=== PATIENT | female | born 1965 | race Caucasian/White ===

== ENCOUNTER → 2016-02-17 | Outpatient (CLI) | payer OTHER ==
[2015-11-14 15:00] VITALS: BP 137/84
[~2016-02-17] MED LIST: ALPR0.5T6 PO; ASPI81TA2 PO; ATOR40TA59 PO; CARV6.252 PO; CYCL10TA2 PO; FLU60SYR IM; FLUO20CA8 PO; GADOBUTROL 10 MMOL/10 ML VIAL IV ONE; HYDR-963 PO; LEVO88TA4 PO; LINA145C PO; LISI2.5T PO; METH-38 PO; MORP30TA83 PO; NITR0.4T SL; OMEP20TA PO; OXYC-323 PO; PROAIR HFA8.5 GM INH; SENN-37 PO
--- NOTE | 2016-02-17 12:48 | RAD ---
PROCEDURE MRI lumbar spine without and with contrast. HISTORY Worsening low back pain, surgery TECHNIQUE Sagittal and axial T1 and T2, sagittal STIR, and post-contrast sagittal and axial T1 weighted images were acquired of the lumbar spine. Contrast: 10 cc Gadavist COMPARISON None available FINDINGS There is motion degradation. The most inferior fully formed intervertebral disc space will be considered L5-S1 for this report. There is superior Schmorl's node of what is considered L2, smaller foci of T12 and L1 and also visualized inferior thoracic levels. There is nonspecific mild edema and enhancement associated with the superior L2 Schmorl's node. Conus terminates at L1. There is no nodular enhancement of the conus or cauda equina, no enhancement within the central intervertebral disc spaces. There is nonspecific edema and enhancement of the posterior soft tissues of the lower back. L1-L2: Spinal canal and neural foramina are adequate. L2-3: There is mild facet hypertrophic change. There is prominence of posterior epidural fat. Neural foramina and spinal canal are adequate. L3-4: There is prominence of posterior epidural fat. There is mild buckling of the ligamentum flavum and facet hypertrophic change. Neural foramina are adequate. There is overall mild attenuation of the thecal sac mostly from posterior epidural lipomatosis. L4-5: There has been posterior decompression. There is enhancing soft tissue at the laminectomy site, also nonspecific peripherally enhancing fluid collection on the order of 1 centimeter AP by 0.9 cm transverse by 1.7 centimeters cc. Fluid collection does not exert significant additional mass effect on the thecal sac. There is no clear communication between the thecal sac and the fluid collection. There is mild indentation upon the dorsal thecal sac by enhancing soft tissue at the level of the mid aspect of L5. At the L4-5 intervertebral disc space, spinal canal is overall adequate. There is posterior annular tear. Neural foramina are overall adequate. There is minimal posterior narrowing of the far left lateral recess by facet hypertrophic change. L5-S1: Spinal canal and neural foramina are adequate. There has been posterior decompression at L5. IMPRESSION 1. The most inferior fully formed intervertebral disc space is considered L5-S1 for this report. There has been posterior decompression at L4-5, enhancing fibrosis at laminectomy site with associated nonspecific fluid collection of uncertain sterility. Fluid collection does not result in mass effect upon the thecal sac. There is other nonspecific edema and enhancement of the posterior soft tissues of the lower back. There is no significant lumbar spinal stenosis. 2. There is a nonspecific superior L2 Schmorl's node with associated edema and enhancement, could be more recent. Electronically signed by: Brendon Smith MD (Feb 17, 2016 12:47:37)
== END | disposition home or self-care (01) ==
LOC: MRI 09:04
PROVIDERS: ATTEND Neurological Surgery
DX: M54.5 Low back pain (principal); I10 Essential (primary) hypertension
CPT/HCPCS: 72158

== ENCOUNTER → 2016-02-20 | Outpatient (CLI) | payer OTHER ==
[2015-11-14 15:00] VITALS: BP 137/84
[~2016-02-20] MED LIST changes: -GADOBUTROL 10 MMOL/10 ML VIAL IV ONE
[2016-02-20 15:05] LABS: BASO # 0.1 x10^3/uL (0.0-0.2); BASO % 1 % (0-3); EOS % 4 % (0-3); HEMATOCRIT 38.3 % (36.0-47.0); HEMOGLOBIN 12.6 g/dL (12.0-15.5); LYMPH # 2.4 x10^3/uL (1.0-4.8); LYMPH % 33 % (24-48); MEAN CORPUSCULAR HEMOGLOBIN 30 pg (25-35); MEAN CORPUSCULAR HGB CONC 33 g/dL (31-37); MEAN CORPUSCULAR VOLUME 91 fL (79-100); MONO % 8 % (0-9); NEUT % 55 % (31-73); PLATELET COUNT 214 x10^3/uL (140-400); RED BLOOD COUNT 4.22 x10^6/uL (3.50-5.40); RED CELL DISTRIBUTION WIDTH 13.9 % (11.5-14.5); WHITE BLOOD COUNT 7.3 x10^3/uL (4.0-11.0)
[2016-02-20 15:18] LABS: GFR 58.5; POTASSIUM 4.2 mmol/L (3.5-5.1)
== END | disposition home or self-care (01) ==
LOC: LAB 14:46
PROVIDERS: ATTEND Neurological Surgery
DX: M54.9 Dorsalgia, unspecified (principal)
CPT/HCPCS: 36415; 80048; 85027; 85651; 86141

== ENCOUNTER → 2016-04-09 | Outpatient (CLI) | payer OTHER ==
[2015-11-14 15:00] VITALS: BP 137/84
--- NOTE | 2016-04-09 14:01 | RAD ---
Pelvic ultrasound, 04/09/2016: History: Enlarged uterus, pelvic tenderness Transabdominal and transvaginal scans were obtained. The uterus measures 8 x 5 x 3.5 cm. The central uterine echo complex measures 3 mm. No uterine mass is seen. The left ovary is of normal size and demonstrates internal blood flow. The right ovary was not visualized. No adnexal mass is evident. No free fluid is seen in the pelvis. IMPRESSION: 1. Nonvisualization of the right ovary. 2. No significant abnormality is detected.
== END | disposition home or self-care (01) ==
LOC: US 10:19
DX: N90.4 Leukoplakia of vulva (principal)
CPT/HCPCS: 76830; 76856

== ENCOUNTER → 2017-09-20 | Outpatient (CLI) | payer MEDICARE, MEDICAID ==
[2015-11-14 15:00] VITALS: BP 137/84
[~2017-09-20] MED LIST changes: +ASPI-630 PO; -ASPI81TA2 PO; -OMEP20TA PO; +OMEP20TA8 PO
--- NOTE | 2017-09-20 17:58 | KCIC ---
MRI of the lumbar spine without contrast 09/20/2017 CLINICAL HISTORY: Low back pain which radiates down the right leg for the last 4 months. History of previous lumbar spine surgery. TECHNIQUE: Unenhanced T1-weighted and T2-weighted sagittal and axial and inversion recovery sagittal images of the lumbar spine were obtained. FINDINGS: Comparison study is dated 02/17/2016. Minimal S-shaped curvature of the thoracolumbar spine is seen. Degenerative signal changes are seen involving all all of the disks of the lumbar spine. Degenerative signal changes are seen within the marrow surrounding these discs. The conus medullaris is normal in morphology, position, and signal characteristics. At the L1-2 disc space there is a mild generalized disc bulge. Degenerative changes are seen involving the facet joints bilaterally. These findings do not result in significant central spinal canal or neural foraminal stenosis. At the L2-3 disc space there is a mild generalized disc bulge. Degenerative changes are seen involving the facet joints bilaterally. There is mild ligamentum flavum hypertrophy bilaterally. There are small facet joint effusions. There is prominence of the posterior epidural fat. These findings when combined result in very mild central spinal canal stenosis. No neural foraminal stenosis is seen. At the L3-4 disc space there is a mild generalized disc bulge. Degenerative changes are seen involving the facet joints bilaterally. There is moderate ligamentum flavum hypertrophy bilaterally. Small facet joint effusions are seen. There is prominence of the posterior epidural fat. These findings when combined result in mild central spinal canal stenosis. No neural foraminal stenosis is seen. At the L4-5 disc space the patient is post laminectomy. There is a mild generalized disc bulge. Degenerative changes are seen involving the facet joints bilaterally. These findings do not result in significant central spinal canal or neural foraminal stenosis. At the L5-S1 disc space there is a minimal generalized disc bulge. Degenerative changes are seen involving the facet joints bilaterally. These findings do not result in significant central spinal canal or neural foraminal stenosis. Since the previous examination, the edema and small fluid collection posterior to the laminectomy site have largely resolved. IMPRESSION: 1. Post laminectomy at L4-5. 2. The changes of degenerative disc disease are seen involving the lumbar spine. These findings result in very mild central spinal canal stenosis at L2-3 and mild central spinal canal stenosis at L3-4. No neural foraminal stenosis is seen. Electronically signed by: Baron Ramirez MD (09/20/2017 5:54 PM) [id number]
== END | disposition home or self-care (01) ==
LOC: KCIC MRI 12:02
PROVIDERS: ATTEND Neurological Surgery
DX: M51.36 Other intervertebral disc degeneration, lumbar region (principal); M48.061 Spinal stenosis, lumbar region without neurogenic claudication; I10 Essential (primary) hypertension; E78.5 Hyperlipidemia, unspecified; E03.9 Hypothyroidism, unspecified; I25.10 Atherosclerotic heart disease of native coronary artery without angina pectoris
CPT/HCPCS: 72148

== ENCOUNTER → 2017-10-05 | Outpatient (CLI) | payer MEDICARE, MEDICAID ==
[2015-11-14 15:00] VITALS: BP 137/84
--- NOTE | 2017-10-05 13:26 | RAD ---
EXAM: Lumbar spine, 7 views. HISTORY: Pain. COMPARISON: None. FINDINGS: Frontal, lateral, bilateral oblique, coned sacral and flexion and extension views of the lumbar spine are obtained. There is sacralization of the right aspect of L5, with articulation of the sacralized right transverse process with the sacrum. There are laminectomy changes at L4 and L5. There is a rudimentary disc at L5-S1. There is mild anterior predominant endplate remodeling throughout the visualized thoracic and lumbar spine. There are multiple endplate Schmorl's nodes. There is no abnormal motion between flexion and extension. IMPRESSION: 1. Partial sacralization of L5 and rudimentary L5-S1 disc. 2. Multilevel degenerative change, described above. There is no acute osseous finding. Electronically signed by: Jannet Hernandez MD (10/05/2017 1:23 PM) [facility]
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
== END | disposition home or self-care (01) ==
LOC: MRI 12:26
PROVIDERS: ATTEND Neurological Surgery
DX: M43.27 Fusion of spine, lumbosacral region (principal); M47.896 Other spondylosis, lumbar region; M51.46 Schmorl's nodes, lumbar region; M48.02 Spinal stenosis, cervical region; M50.322 Other cervical disc degeneration at C5-C6 level; M43.12 Spondylolisthesis, cervical region; G95.0 Syringomyelia and syringobulbia; I10 Essential (primary) hypertension; E78.5 Hyperlipidemia, unspecified; E03.9 Hypothyroidism, unspecified; I25.10 Atherosclerotic heart disease of native coronary artery without angina pectoris; K21.9 Gastro-esophageal reflux disease without esophagitis; I25.2 Old myocardial infarction; Z82.49 Family history of ischemic heart disease and other diseases of the circulatory system
CPT/HCPCS: 72114; 72141

== ENCOUNTER → 2017-11-04 | Outpatient (CLI) | payer MEDICARE, MEDICAID ==
[2015-11-14 15:00] VITALS: BP 137/84
[~2017-11-04] MED LIST changes: +CARV6.2511 PO; -CARV6.252 PO; +GADOBUTROL 10 MMOL/10 ML VIAL IV ONE; +HYDR-3135 PO; -HYDR-963 PO; -OXYC-323 PO; +OXYC1TAB15 PO
--- NOTE | 2017-11-04 11:52 | RAD ---
MRI of the cervical spine without contrast 11/04/2017 CLINICAL HISTORY: Syrinx seen within the cervical spine on recent MRI. TECHNIQUE: After the intravenous administration of 9 cc of Gadavist, enhanced T1-weighted sagittal and axial images of the cervical spine were obtained. FINDINGS: Comparison study is dated 10/05/2017. There is mild straightening of the normal cervical lordosis. The cerebellar tonsils project 5 to 6 mm below the level of the foramen magnum consistent with a borderline Chiari I malformation. A small syrinx is again seen within the cervical spinal cord at the C7 level. This measures 9 x 4 x 3 mm in craniocaudal, transverse and AP dimensions. It does not enhance with contrast. No area of abnormal contrast enhancement is seen. Degenerative changes are seen involving the cervical disc spaces which are unchanged. IMPRESSION: No area of abnormal contrast enhancement is seen. Electronically signed by: Baron Ramirez MD (11/04/2017 11:48 AM) [id number]
== END | disposition home or self-care (01) ==
LOC: MRI 15:29
PROVIDERS: ATTEND Neurological Surgery
DX: G95.0 Syringomyelia and syringobulbia (principal); M40.50 Lordosis, unspecified, site unspecified; G93.5 Compression of brain
CPT/HCPCS: 72142; A9585

== ENCOUNTER → 2018-01-11 | Outpatient (CLI) | payer MEDICARE, MEDICAID ==
[2015-11-14 15:00] VITALS: BP 137/84
[~2018-01-11] MED LIST changes: +ATROVENT HFA12.9 GM IH; +BREO ELLIPTA 11 EACH IH; +CARV25TA PO; +ESTR42.53 VG; -GADOBUTROL 10 MMOL/10 ML VIAL IV ONE; -LINA145C PO; +LINZESS145 MCG PO; +POTA10TA12 PO; +SERT50TA PO; +TOPI100T42 PO
--- NOTE | 2018-01-11 09:59 | EKG ---
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
[2018-01-11 10:05] LABS: BASO % 0 % (0-3); EOS % 1 % (0-3); HEMATOCRIT 36.3 % (36.0-47.0); HEMOGLOBIN 12.1 g/dL (12.0-15.5); LYMPH # 2.3 x10^3/uL (1.0-4.8); LYMPH % 47 % (24-48); MEAN CORPUSCULAR HEMOGLOBIN 29 pg (25-35); MEAN CORPUSCULAR HGB CONC 33 g/dL (31-37); MEAN CORPUSCULAR VOLUME 88 fL (79-100); MONO # 0.4 x10^3/uL (0.0-1.1); MONO % 7 % (0-9); NEUT # 2.2 x10^3uL (1.8-7.7); NEUT % 45 % (31-73); PLATELET COUNT 238 x10^3/uL (140-400); RED BLOOD COUNT 4.15 x10^6/uL (3.50-5.40); RED CELL DISTRIBUTION WIDTH 15.5 % (11.5-14.5); WHITE BLOOD COUNT 4.9 x10^3/uL (4.0-11.0)
[2018-01-11 10:14] LABS: PROTHROMBIN TIME PATIENT 12.6 SEC (11.7-14.0)
[2018-01-11 10:32] LABS: ALBUMIN 3.5 g/dL (3.4-5.0); ALBUMIN/GLOBULIN RATIO 0.9 (1.0-1.7); CREATININE 0.8 mg/dL (0.6-1.0); POTASSIUM 4.2 mmol/L (3.5-5.1); TOTAL BILIRUBIN 0.4 mg/dL (0.2-1.0); TOTAL PROTEIN 7.3 g/dL (6.4-8.2)
--- NOTE | 2018-01-11 15:41 | RAD ---
Chest, 2 views, 01/11/2018: HISTORY: Preop evaluation for spine surgery Comparison is made to a study from 11/11/2015. The heart size is normal. There are mild basilar linear opacities compatible scarring. No pulmonary consolidation is seen. There is no evidence of pleural fluid. Mild spurring is present in the spine. IMPRESSION: 1. Mild bibasilar scarring. 2. No acute abnormality is detected. Electronically signed by: Shakir Gale MD (01/11/2018 3:37 PM) [facility]
== END | disposition home or self-care (01) ==
LOC: SURGPAT 09:00
PROVIDERS: ATTEND Neurological Surgery
DX: Z01.818 Encounter for other preprocedural examination (principal); L90.5 Scar conditions and fibrosis of skin
CPT/HCPCS: 36415; 71046; 80053; 85025; 85610; 85730; 87641; 93005

== ENCOUNTER 2018-02-08 13:25 | Emergency (ER) | payer MEDICARE, MEDICAID ==
[~2018-02-08] VITALS: Ht 162.6 cm; Wt 99.8 kg
[~2018-02-08 13:25] MED LIST changes: +ALBU2.5V8 INH; -PROAIR HFA8.5 GM INH
[2018-02-08] MEDS ORDERED: IPRATRPIUM/ALBUTEROL 0.5/2.5MG 3 ML NEBU. NEB ONE (13:45)
[2018-02-08] MEDS ORDERED: IV NORMAL SALINE 1000ML BAG 1,000 ML IV SCH (14:00)
--- NOTE | 2018-02-08 14:02 | PHYS DOC ---
Past Medical History Past Medical History: Asthma, CHF, COPD, Hypotension Additional Past Medical Histor: Chronic Pain Past Surgical History: Tonsillectomy, Tubal ligation Additional Past Surgical Histo: CLIPS TO LEFT BREAST, Surgery for Chiari MAlformation 01/2018 Smoking: Quit Greater Than 1 Year Alcohol Use: None Drug Use: None Adult General Chief Complaint Chief Complaint: SHORTNESS OF BREATH HPI HPI She is a 52-year-old female who presents to the emergency department for evaluation. She states the past 2 days she has had shortness of breath, along with a wet sounding cough which she has been unable to produce any mucus. She has not had any fevers or chills. Her symptoms have been resistant to taking her albuterol nebulizers at home. She denies any chest pain, pleuritic or otherwise. She does have some leg swelling occasionally, and states that her right leg especially has been more swollen than normal the past few days. She did undergo surgery for a Chiari malformation 3 weeks ago. There are no alleviating or exacerbating factors to her symptoms. Review of Systems Review of Systems Constitutional: Denies fever or chills [] Eyes: Denies change in visual acuity, redness, or eye pain [] HENT: Denies nasal congestion or sore throat [] Respiratory: Reports cough, nonproductive, as well as shortness of breath.[] Cardiovascular: No additional information not addressed in HPI [] GI: Denies abdominal pain, nausea, vomiting, bloody stools or diarrhea [] : Denies dysuria or hematuria [] Musculoskeletal: Denies back pain or joint pain [] Integument: Denies rash or skin lesions [] Neurologic: Denies headache, focal weakness or sensory changes [] Endocrine: Denies polyuria or polydipsia [] All other systems were reviewed and found to be within normal limits, except as documented in this note. Current Medications Current Medications Current Medications Medications (Trade) Dose Ordered Sig/Prateek Start Time Stop Time Status Last Admin Dose Admin Acetaminophen (Tylenol) 1,000 mg 1X ONCE 02/08/18 16:30 02/08/18 16:31 DC 02/08/18 16:26 1,000 MG Albuterol/ Ipratropium (Duoneb) 3 ml 1X ONCE 02/08/18 13:45 02/08/18 13:50 DC 02/08/18 13:49 3 ML Info (CONTRAST GIVEN -- Rx MONITORING) 1 each PRN DAILY PRN 02/08/18 14:45 02/10/18 14:44 Iohexol (Omnipaque 300 Mg/ml) 75 ml 1X ONCE 02/08/18 15:00 02/08/18 15:01 DC 02/08/18 15:13 75 ML Methylprednisolone Sodium Succinate (SOLU-Medrol 125MG VIAL) 125 mg 1X ONCE 02/08/18 14:15 02/08/18 14:16 DC 02/08/18 14:17 125 MG Oseltamivir Phosphate (Tamiflu) 75 mg 1X ONCE 02/08/18 15:30 02/08/18 15:31 DC 02/08/18 16:05 75 MG Sodium Chloride 1,000 ml @ 100 mls/hr Q10H 02/08/18 14:00 02/08/18 23:59 02/08/18 14:17 100 MLS/HR Allergies Allergies Allergies Coded Allergies Type Severity Reaction Last Updated Verified No Known Drug Allergies 01/18/18 No Physical Exam Physical Exam PHYSICAL EXAM: CONSTITUTIONAL: Well developed, well nourished HEAD: normocephalic, atraumatic EENT: PERRL, EOMI. Conjunctivae normal color, sclerae non-icteric; moist mucous membranes. NECK: Supple, non-tender; no meningismus. There is a healing scar at the posterior neck/skull base. LUNGS: There are coarse inspiratory next respiratory wheezes in all lung bates , without rales or rhonchi. HEART: Regular rhythm, mild tachycardia, no murmur CHEST: No deformity; non-tender ABDOMEN: The abdomen is soft, and non-tender, no masses or bruits. EXTREM: Normal ROM; no deformity, . Normal pulses palpable in all extremities. There is mild bilateral nonpitting pedal edema. There is tenderness to palpation to the calves bilaterally, right greater than left. SKIN: No rash; no diaphoresis NEURO: Alert; normal speech and cognition; CN's grossly intact; strength grossly intact without focal deficit. BACK: No CVA TTP. Current Patient Data Vital Signs Vital Signs Date Time Temp Pulse Resp B/P (MAP) Pulse Ox O2 Delivery O2 Flow Rate FiO2 02/08/18 14:30 98 21 129/56 (80) 93 Room Air 02/08/18 13:30 99.7 99.7 Lab Values Laboratory Tests Test 02/08/18 14:05 White Blood Count 3.7 x10^3/uL (4.0-11.0) L Red Blood Count 4.06 x10^6/uL (3.50-5.40) Hemoglobin 11.9 g/dL (12.0-15.5) L Hematocrit 35.1 % (36.0-47.0) L Mean Corpuscular Volume 87 fL (79-100) Mean Corpuscular Hemoglobin 29 pg (25-35) Mean Corpuscular Hemoglobin Concent 34 g/dL (31-37) Red Cell Distribution Width 16.3 % (11.5-14.5) H Platelet Count 191 x10^3/uL (140-400) Neutrophils (%) (Auto) 61 % (31-73) Lymphocytes (%) (Auto) 25 % (24-48) Monocytes (%) (Auto) 14 % (0-9) H Eosinophils (%) (Auto) 0 % (0-3) Basophils (%) (Auto) 0 % (0-3) Neutrophils # (Auto) 2.3 x10^3uL (1.8-7.7) Lymphocytes # (Auto) 0.9 x10^3/uL (1.0-4.8) L Monocytes # (Auto) 0.5 x10^3/uL (0.0-1.1) Eosinophils # (Auto) 0.0 x10^3/uL (0.0-0.7) Basophils # (Auto) 0.0 x10^3/uL (0.0-0.2) Prothrombin Time 13.4 SEC (11.7-14.0) Prothrombin Time INR 1.1 (0.8-1.1) Sodium Level 135 mmol/L (136-145) L Potassium Level 4.1 mmol/L (3.5-5.1) Chloride Level 98 mmol/L (98-107) Carbon Dioxide Level 29 mmol/L (21-32) Anion Gap 8 (6-14) Blood Urea Nitrogen 6 mg/dL (7-20) L Creatinine 0.8 mg/dL (0.6-1.0) Estimated GFR (Cockcroft-Gault) 75.0 BUN/Creatinine Ratio 8 (6-20) Glucose Level 112 mg/dL (70-99) H Calcium Level 9.4 mg/dL (8.5-10.1) Total Bilirubin 0.6 mg/dL (0.2-1.0) Aspartate Amino Transferase (AST) 29 U/L (15-37) Alanine Aminotransferase (ALT) 31 U/L (14-59) Alkaline Phosphatase 109 U/L (46-116) Creatine Kinase 59 U/L (26-192) Creatine Kinase MB (Mass) < 0.5 ng/mL (0.0-3.6) Creatine Kinase MB Relative Index % (0-4) Troponin I Quantitative < 0.017 ng/mL (0.000-0.055) HP-Neu-P-Type Natriuretic Peptide 131 pg/mL (0-124) H Total Protein 7.5 g/dL (6.4-8.2) Albumin 3.4 g/dL (3.4-5.0) Albumin/Globulin Ratio 0.8 (1.0-1.7) L Influenza Type A Antigen Positive (NEGATIVE) Influenza Type B Antigen Negative (NEGATIVE) Laboratory Tests 02/08/18 14:05 Laboratory Tests 02/08/18 14:05 EKG EKG [Sinus tachycardia at a rate of 104 bpm, normal axis, normal intervals, there are no acute ischemic ST/T changes.] Radiology/Procedures Radiology/Procedures [PROCEDURE: PORTABLE CHEST 1V Portable chest, 02/08/2018: HISTORY: Shortness of breath, cough Comparison is made to a study from 01/11/2018. The heart size is normal. The pulmonary vascularity is normal. There is minimal linear atelectasis in the right base. No pulmonary consolidation is seen. There is no evidence of pleural fluid. IMPRESSION: Minimal right basilar linear atelectasis.] PROCEDURE: CT ANGIOGRAPHY CHEST CTA of the chest with contrast, 02/08/2018: HISTORY: Recent neck surgery, shortness of breath Multidetector CT imaging was performed following an IV bolus injection of iodinated contrast material. Multiplanar reconstructions were produced including coronal MIP images. No filling defects are seen in the central pulmonary arteries to suggest pulmonary emboli. The thoracic aorta is of normal caliber. No mediastinal or hilar adenopathy is seen. There is a suggestion of a small hiatal hernia. There are moderate streaky linear opacities in the lower chest bilaterally. The configuration suggests atelectasis and/or scarring. A tiny benign-appearing perifissural nodule is noted adjacent to the minor fissure on the right. No dense pulmonary consolidation is seen. There is no evidence of pleural fluid. IMPRESSION: 1. Moderate subsegmental atelectasis in the lower chest bilaterally. 2. No CT evidence of central pulmonary emboli. Course & Med Decision Making Course & Med Decision Making Initial evaluation in the emergency Department reveals a patient with a past history of COPD and asthma, who has cough, shortness of breath, along with some wheezing. However she is also somewhat tachycardic, does have some right calf is tenderness in the setting of recent surgery. Although the clinical suspicion for pulmonary embolism is extremely low, the patient is unable to be ruled out based on clinical decision rules alone. CT angiogram will be undertaken. The utility of a d-dimer in the setting of recent surgery is not high. Pertinent Labs and Imaging studies reviewed. (See chart for details) [4:40 PM: Patient remains stable. Her breath sounds have significantly improved. Her oxygen saturation is in the upper 90s on room air. I discussed test results, the need for close follow-up, and return precautions.] Dragon Disclaimer Dragon Disclaimer This electronic medical record was generated, in whole or in part, using a voice recognition dictation system. Departure Departure Impression: Primary Impression: Influenza Additional Impression: COPD exacerbation Disposition: 01 HOME, SELF-CARE Condition: STABLE Referrals: BONI CARR MD (PCP) Patient Instructions: Chronic Obstructive Pulmonary Disease, Influenza A (H1N1) Additional Instructions: Use your albuterol nebulizer every 4-6 hours as needed at home. Scripts Oseltamivir Phosphate (TAMIFLU) 75 Mg Capsule 1 CAP PO BID, #10 CAP Prov: FITO BRAGG MD 02/08/18 Prednisone (PREDNISONE) 20 Mg Tablet 40 MG PO DAILY for 5 Days, #10 TAB Prov: FITO BRAGG MD 02/08/18 Problem Qualifiers FITO BRAGG MD Feb 08, 2018 14:01
[2018-02-08] MEDS ORDERED: methylPREDNISolone SOD SUCC PF 125 MG/2 ML VIAL. IV ONE (14:15)
--- NOTE | 2018-02-08 14:21 | RAD ---
Portable chest, 02/08/2018: HISTORY: Shortness of breath, cough Comparison is made to a study from 01/11/2018. The heart size is normal. The pulmonary vascularity is normal. There is minimal linear atelectasis in the right base. No pulmonary consolidation is seen. There is no evidence of pleural fluid. IMPRESSION: Minimal right basilar linear atelectasis. Electronically signed by: Shakir Gale MD (02/08/2018 2:17 PM) [facility]
[2018-02-08 14:32] LABS: BASO % 0 % (0-3); EOS % 0 % (0-3); HEMATOCRIT 35.1 % (36.0-47.0); HEMOGLOBIN 11.9 g/dL (12.0-15.5); LYMPH # 0.9 x10^3/uL (1.0-4.8); LYMPH % 25 % (24-48); MEAN CORPUSCULAR HEMOGLOBIN 29 pg (25-35); MEAN CORPUSCULAR HGB CONC 34 g/dL (31-37); MEAN CORPUSCULAR VOLUME 87 fL (79-100); MONO # 0.5 x10^3/uL (0.0-1.1); MONO % 14 % (0-9); NEUT # 2.3 x10^3uL (1.8-7.7); NEUT % 61 % (31-73); PLATELET COUNT 191 x10^3/uL (140-400); RED BLOOD COUNT 4.06 x10^6/uL (3.50-5.40); RED CELL DISTRIBUTION WIDTH 16.3 % (11.5-14.5); WHITE BLOOD COUNT 3.7 x10^3/uL (4.0-11.0)
[2018-02-08 14:40] LABS: PROTHROMBIN TIME PATIENT 13.4 SEC (11.7-14.0)
[2018-02-08] MEDS ORDERED: CONTRAST GIVEN. MC PRN (14:45)
[2018-02-08 14:46] LABS: CALCIUM 9.4 mg/dL (8.5-10.1); CREATININE 0.8 mg/dL (0.6-1.0); POTASSIUM 4.1 mmol/L (3.5-5.1)
--- NOTE | 2018-02-08 14:46 | EKG ---
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
[2018-02-08 14:53] LABS: ALBUMIN 3.4 g/dL (3.4-5.0); ALBUMIN/GLOBULIN RATIO 0.8 (1.0-1.7); TOTAL BILIRUBIN 0.6 mg/dL (0.2-1.0); TOTAL PROTEIN 7.5 g/dL (6.4-8.2)
[2018-02-08] MEDS ORDERED: IOHEXOL 300 MG/ML 100ML VIAL. IV ONE (15:00)
[2018-02-08 15:01] LABS: INFLUENZA A PATIENT POSITIVE (NEGATIVE); INFLUENZA B PATIENT NEGATIVE (NEGATIVE)
[2018-02-08 15:03] LABS: CREATINE KINASE 59 U/L (26-192)
--- NOTE | 2018-02-08 15:16 | RAD ---
CTA of the chest with contrast, 02/08/2018: HISTORY: Recent neck surgery, shortness of breath Multidetector CT imaging was performed following an IV bolus injection of iodinated contrast material. Multiplanar reconstructions were produced including coronal MIP images. No filling defects are seen in the central pulmonary arteries to suggest pulmonary emboli. The thoracic aorta is of normal caliber. No mediastinal or hilar adenopathy is seen. There is a suggestion of a small hiatal hernia. There are moderate streaky linear opacities in the lower chest bilaterally. The configuration suggests atelectasis and/or scarring. A tiny benign-appearing perifissural nodule is noted adjacent to the minor fissure on the right. No dense pulmonary consolidation is seen. There is no evidence of pleural fluid. IMPRESSION: 1. Moderate subsegmental atelectasis in the lower chest bilaterally. 2. No CT evidence of central pulmonary emboli. PQRS Compliance Statement: One or more of the following individualized dose reduction techniques were utilized for this examination: 1. Automated exposure control 2. Adjustment of the mA and/or kV according to patient size 3. Use of iterative reconstruction technique Electronically signed by: Shakir Gale MD (02/08/2018 3:12 PM) [facility]
[2018-02-08] MEDS ORDERED: OSELTAMIVIR 75 MG CAPSULE PO ONE (15:30)
--- NOTE | 2018-02-08 16:27 | RAD ---
Right lower extremity venous ultrasound, 02/08/2018 : History: Right leg pain Duplex evaluation including grayscale, color flow and spectral Doppler analysis was performed. The femoral and popliteal veins show no filling defects to suggest DVT. The visualized deep veins in the right calf are unremarkable. IMPRESSION: There is no sonographic evidence of deep vein thrombosis in the right lower extremity Electronically signed by: Shakir Gale MD (02/08/2018 4:23 PM) [facility]
[2018-02-08] MEDS ORDERED: ACETAMINOPHEN 500 MG TABLET PO ONE (16:30)
[2018-02-08] MEDS ORDERED: PRED20TA PO (16:45)
[2018-02-08] MEDS ORDERED: OSEL75CA PO (16:45)
[2018-02-08 16:48] VITALS: BP 117/68
== END 2018-02-08 16:48 | disposition home or self-care (01) ==
LOC: ER 13:25
DX: J44.1 Chronic obstructive pulmonary disease with (acute) exacerbation (principal); J09.X2 Influenza due to identified novel influenza A virus with other respiratory manifestations; G89.29 Other chronic pain; Z86.79 Personal history of other diseases of the circulatory system; Z87.891 Personal history of nicotine dependence
CPT/HCPCS: 36415; 71045; 71275; 80053; 82553; 83880; 84484; 85025; 85610; 87804; 93005; 93971; 94640; 96374; 99284; J2930; J7030; J7620; Q9967